=== PATIENT | female | born 1935 | race Caucasian/White ===

== ENCOUNTER → 2018-02-14 12:37 | Outpatient (CLI) | payer MEDICARE, BC ==
[2012-01-01 12:08] VITALS: BMI 25.5
== END | disposition home or self-care (01) ==
LOC: D.US 12:37
DX: I10 Essential (primary) hypertension (principal)

== ENCOUNTER → 2020-04-06 13:33 | Outpatient (CLI) | payer MEDICARE, BC ==
[2012-01-01 12:08] VITALS: BMI 25.5
[2020-04-08 18:08] LABS: OVA + PARASITE EXAM Final report (())
== END | disposition home or self-care (01) ==
LOC: D.LABREF 13:33
PROVIDERS: ATTEND Family Medicine
DX: R19.7 Diarrhea, unspecified (principal)